=== PATIENT | female | born 1975 | race Caucasian/White ===

== ENCOUNTER 2017-02-14 20:09 | Inpatient (IN) | payer MEDICAID ==
[~2017-02-14] VITALS: Ht 152.4 cm; Wt 86.6 kg
[2017-02-14 21:50] LABS: BASOPHIL % 0.3 % (0-2); PLATELET COUNT 317 x10^3mcL (130-400); RED CELL DISTRIBUTION WIDTH 14.5 % (11.5-14.5)
[2017-02-14 22:02] LABS: CALCIUM 8.7 mg/dL (8.5-10.1); CARBON DIOXIDE 25.3 mmol/L (21-32); CHLORIDE SERUM 104 mmol/L (98-107); CREATININE SERUM 0.7 mg/dL (0.6-1.0); GFR1 > 60 mL/min; GLUCOSE SERUM 99 mg/dL (74-106); POTASSIUM SERUM 3.8 mmol/L (3.5-5.1); SODIUM SERUM 139 mmol/L (136-145)
[2017-02-14 22:07] LABS: ALBUMIN 3.7 g/dL (3.4-5.0); ALKALINE PHOSPHATASE 84 U/L (46-116); ALT/SGPT 46 U/L (14-59); AST/SGOT 29 U/L (15-37); BILIRUBIN TOTAL 0.28 mg/dL (0.20-1.00); LIPASE 1294 IU/L (73-393); TOTAL PROTEIN, SERUM 7.4 g/dL (6.4-8.2)
[2017-02-14 22:11] LABS: AMYLASE 158 U/L (25-115)
[2017-02-15 01:11] VITALS: BP 113/74
[2017-02-15 02:48] LABS: T3 TOTAL 1.22 ng/mL
[2017-02-15 03:46] LABS: CHOLESTEROL/HDL RATIO 2.6
[2017-02-15 04:04] LABS: FREE T4 0.96 ng/dL (0.76-1.46); FREE THYROXINE INDEX 3.2 ug/dL (1.4-4.5); T4(THYROXINE) 9.5 ug/dL (4.7-13.3)
[2017-02-15 06:25] LABS: BASOPHIL % 0.4 % (0-2); PLATELET COUNT 271 x10^3mcL (130-400); RED CELL DISTRIBUTION WIDTH 14.2 % (11.5-14.5)
[2017-02-15 06:36] LABS: CALCIUM 7.6 mg/dL (8.5-10.1); CARBON DIOXIDE 24.9 mmol/L (21-32); CHLORIDE SERUM 109 mmol/L (98-107); CREATININE SERUM 0.6 mg/dL (0.6-1.0); GFR1 > 60 mL/min; GLUCOSE SERUM 106 mg/dL (74-106); MAGNESIUM 1.8 mg/dL (1.8-2.4); PHOSPHOROUS 2.9 mg/dL (2.5-4.9); POTASSIUM SERUM 3.7 mmol/L (3.5-5.1); SODIUM SERUM 142 mmol/L (136-145)
[2017-02-15 06:42] VITALS: BP 112/63
[2017-02-15 10:55] VITALS: BP 116/74
[2017-02-15 17:35] VITALS: BP 127/84
[2017-02-15 20:22] VITALS: BP 101/67
[2017-02-15 20:24] VITALS: BP 119/70
[2017-02-16 05:28] VITALS: BP 109/61
[2017-02-16 05:32] LABS: BASOPHIL % 0.5 % (0-2); PLATELET COUNT 270 x10^3mcL (130-400); RED CELL DISTRIBUTION WIDTH 14.2 % (11.5-14.5)
[2017-02-16 05:50] LABS: CALCIUM 8.1 mg/dL (8.5-10.1); CARBON DIOXIDE 25.6 mmol/L (21-32); CHLORIDE SERUM 110 mmol/L (98-107); CREATININE SERUM 0.7 mg/dL (0.6-1.0); GFR1 > 60 mL/min; GLUCOSE SERUM 89 mg/dL (74-106); MAGNESIUM 1.9 mg/dL (1.8-2.4); PHOSPHOROUS 2.8 mg/dL (2.5-4.9); POTASSIUM SERUM 3.6 mmol/L (3.5-5.1); SODIUM SERUM 144 mmol/L (136-145)
[2017-02-16 09:39] VITALS: BP 111/65
[2017-02-16 17:04] VITALS: BP 127/76
[2017-02-16 17:07] LABS: microscopic required? NO
[2017-02-16 17:27] LABS: urine erythrocyte NEGATIVE (NEGATIVE)
[2017-02-16 17:38] LABS: AMPHETAMINE QUAL UR NONE DETECTED (NEG <=1000)
[2017-02-16 21:49] VITALS: BP 135/60
[2017-02-17 06:06] VITALS: BP 127/74
[2017-02-17 07:24] LABS: CALCIUM 8.6 mg/dL (8.5-10.1); CARBON DIOXIDE 28.5 mmol/L (21-32); CHLORIDE SERUM 108 mmol/L (98-107); CREATININE SERUM 0.7 mg/dL (0.6-1.0); GFR1 > 60 mL/min; GLUCOSE SERUM 112 mg/dL (74-106); POTASSIUM SERUM 3.6 mmol/L (3.5-5.1); SODIUM SERUM 142 mmol/L (136-145)
[2017-02-17 07:25] LABS: ALBUMIN 3.1 g/dL (3.4-5.0)
[2017-02-17 09:12] VITALS: BP 130/76
[2017-02-17] MEDS ORDERED: NORCO1 TA2 PO (10:19)
[2017-02-17 13:03] VITALS: BP 130/76
== END 2017-02-17 13:25 | disposition home or self-care (01) | DRG 282 ==
LOC: ED 20:09 → MU 02-15 → DU 02-15 → ED 02-15 00:47 → DU 02-15 04:01 → MU 02-15 10:23
PROVIDERS: Family Medicine; Specialist; ADMIT Family Medicine
DX: K85.90 Acute pancreatitis without necrosis or infection, unspecified (principal); N17.0 Acute kidney failure with tubular necrosis; K76.0 Fatty (change of) liver, not elsewhere classified; E11.65 Type 2 diabetes mellitus with hyperglycemia; D64.9 Anemia, unspecified; E44.1 Mild protein-calorie malnutrition; Z68.37 Body mass index [BMI] 37.0-37.9, adult
CPT/HCPCS: 80307; 83880; 84439; J1885; J2405; J3010; J7030; Q0092

== ENCOUNTER 2017-02-28 16:20 | Emergency (ER) | payer MEDICAID ==
[~2017-02-28 16:20] MED LIST: NORCO1 TA2 PO
[2017-02-28 19:51] LABS: BASOPHIL % 0.3 % (0-2); PLATELET COUNT 286 x10^3mcL (130-400); RED CELL DISTRIBUTION WIDTH 14.4 % (11.5-14.5)
[2017-02-28 20:03] LABS: CALCIUM 8.6 mg/dL (8.5-10.1); CARBON DIOXIDE 24.9 mmol/L (21-32); CHLORIDE SERUM 105 mmol/L (98-107); CREATININE SERUM 0.7 mg/dL (0.6-1.0); GFR1 > 60 mL/min; GLUCOSE SERUM 94 mg/dL (74-106); POTASSIUM SERUM 3.4 mmol/L (3.5-5.1); SODIUM SERUM 137 mmol/L (136-145)
[2017-02-28 20:08] LABS: ALBUMIN 3.8 g/dL (3.4-5.0); ALKALINE PHOSPHATASE 80 U/L (46-116); ALT/SGPT 38 U/L (14-59); AMYLASE 66 U/L (25-115); AST/SGOT 27 U/L (15-37); BILIRUBIN TOTAL 0.28 mg/dL (0.20-1.00); LIPASE 211 IU/L (73-393); TOTAL PROTEIN, SERUM 7.5 g/dL (6.4-8.2)
[2017-02-28 21:36] VITALS: BP 120/69
== END 2017-02-28 21:36 | disposition home or self-care (01) ==
LOC: ED 16:20
PROVIDERS: Emergency Medicine
DX: R10.11 Right upper quadrant pain (principal); R11.0 Nausea; R50.9 Fever, unspecified; Z79.899 Other long term (current) drug therapy
CPT/HCPCS: 83880; J2270; J2405; J7030; Q0092